=== PATIENT | female | born 1945 | race Caucasian/White ===

== ENCOUNTER 2017-09-12 14:23 | Outpatient (CLI) | payer MEDICARE ==
--- NOTE | 2017-09-12 18:04 | RAD ---
PELVIS TWO VIEWS 09/12/17 No fracture or area of bony destruction was seen. The SI joints are symmetrical and the symphysis kenji ws no widening or offset. The hip joints are symmetrical and appear normal. Some degenerative changes are suggested in the lower lumbar spine near the lumbosacral level. IMPRESSION: No acute bony findings. POS: HOME
== END 2017-09-12 14:24 | disposition home or self-care (01) ==
LOC: BURRAD 14:23
PROVIDERS: ATTEND Family Medicine
DX: M54.31 Sciatica, right side (principal)
CPT/HCPCS: 72170

== ENCOUNTER 2018-09-11 10:07 | Outpatient (CLI) | payer MEDICARE ==
--- NOTE | 2018-09-11 20:13 | RAD ---
CHEST 2 VIEWS: Date: 09/11/18 The heart is normal in size. There is no pulmonary edema, congestion, or focal pulmonary infiltrate. No effusions are seen. Mild degenerative changes are seen in the spine. A slight deviation of the tra joyce near the thoracic inlet may just be due to the patient turning her head slightly. IMPRESSION: No definite acute findings. POS: HOME
== END 2018-09-11 10:08 | disposition home or self-care (01) ==
LOC: BURRAD 10:07
PROVIDERS: ATTEND Family Medicine
DX: F51.01 Primary insomnia (principal); E87.79 Other fluid overload
CPT/HCPCS: 36415; 71046; 83880

== ENCOUNTER 2021-04-26 12:34 | Outpatient (CLI) | payer MEDICARE | END 2021-04-26 12:35 | disposition home or self-care (01) | LOC: BURRAD 12:34 | PROVIDERS: ATTEND Family Medicine | DX: M25.561 Pain in right knee (principal) ==